=== PATIENT | female | born 1955 ===

== ENCOUNTER → 2017-07-13 | Outpatient (CLI) | payer OTHER ==
[2017-07-13 13:18] LABS: HEMATOCRIT 42.7 % (36.0-47.0); HEMOGLOBIN 14.2 g/dL (12.0-15.5); MEAN CORPUSCULAR HEMOGLOBIN 31.3 pg (27.0-33.4); MEAN CORPUSCULAR HGB CONC 33.3 g/dL (32.0-36.0); MEAN CORPUSCULAR VOLUME 94 fl (80-97); PLATELET COUNT 254 10^3/uL (150-450); RED BLOOD COUNT 4.54 10^6/uL (3.72-5.28); RED CELL DISTRIBUTION WIDTH 13.3 % (11.5-14.0); WHITE BLOOD COUNT 5.3 10^3/uL (4.0-10.5)
[2017-07-13 13:20] LABS: ALANINE AMINOTRANSFERASE 97 U/L (9-52); ALBUMIN 4.5 g/dL (3.5-5.0); ALKALINE PHOSPHATASE 75 U/L (38-126); AMYLASE 59 U/L (30-110); ANION GAP 11 (5-19); ASPARTATE AMINO TRANSFERASE 60 U/L (14-36); BILIRUBIN,DIRECT 0.1 mg/dL (0.0-0.4); BILIRUBIN,TOTAL 0.5 mg/dL (0.2-1.3); BLOOD UREA NITROGEN 9 mg/dL (7-20); CARBON DIOXIDE 27 mmol/L (22-30); CHLORIDE 108 mmol/L (98-107); CHOLESTEROL 209.63 mg/dL (0-200); GAMMA-GLUTAMYL TRANSFERASE 27 U/L (8-78); GLUCOSE 92 mg/dL (75-110); IRON(TIBC) 141.8 ug/dL (37-170); LDH 468 U/L (313-618); PHOSPHORUS 3.3 mg/dL (2.5-4.5); POTASSIUM 5.1 mmol/L (3.6-5.0); SODIUM 146.1 mmol/L (137-145); TOTAL PROTEIN 7.3 g/dL (6.3-8.2); TRIGLYCERIDES 135 mg/dL (<150)
[2017-07-13 13:33] LABS: DIRECT LDL 153 mg/dL (<100)
[2017-07-13 13:36] LABS: FREE T3 3.51 pg/mL (2.77-5.27)
[2017-07-13 13:43] LABS: ABSOLUTE LYMPHOCYTES# (MANUAL) 1.6 10^3/uL (0.5-4.7); ABSOLUTE MONOCYTES # (MANUAL) 0.3 10^3/uL (0.1-1.4); ABSOLUTE NEUTROPHILS# (MANUAL) 3.2 10^3/uL (1.7-8.2); BASOPHILS % (MANUAL) 0 % (0-2); EOSINOPHILS % (MANUAL) 2 % (0-6); LYMPHOCYTES % (MANUAL) 28 % (13-45); MONOCYTES % (MANUAL) 6 % (3-13); SEGMENTED NEUTROPHILS % (MAN) 61 % (42-78); TOTAL CELLS COUNTED 100
[2017-07-13 13:44] LABS: FREE T4 (FREE THYROXINE) 0.97 ng/dL (0.78-2.19); RBC MORPHOLOGY COMMENT NORMO-CYTIC/CHROMIC
[2017-07-13 13:45] LABS: PLATELET COMMENT ADEQUATE
[2017-07-13 14:59] LABS: FOLATE > 20.00 ng/mL (>2.76)
[2017-07-14 06:39] LABS: FREE THYROXINE INDEX 1.7 (1.2-4.9); INSULIN-LIKE GROWTH FACTOR I 45 ng/mL (46-172); T3 UPTAKE (RESIN) 22 % (24-39); THYROXINE (T4) 7.6 ug/dL (4.5-12.0); TRIIODOTHYRONINE (T3) 132 ng/dL (71-180)
[2017-07-14 07:20] LABS: FRUCTOSAMINE 217 umol/L (0-285); THYROGLOBULIN AB <1.0 IU/mL (0.0-0.9); THYROID PEROXIDASE (TPO) AB 13 IU/mL (0-34)
[2017-07-14 07:43] LABS: DEHYDROEPIANDROSTERONE SULFATE 99.8 ug/dL (29.4-220.5); PROLACTIN 7.1 ng/mL (4.8-23.3)
[2017-07-14 07:58] LABS: ESTRADIOL 16.9 pg/mL (.); FOLLICLE STIMULATING HORMONE 56.1 mIU/mL (.); LUTEINIZING HORMONE 26.7 mIU/mL (.); PROGESTERONE <0.1 ng/mL (.); SEX HORM BINDING GLOBULIN 62.9 nmol/L (17.3-125.0)
[2017-07-14 14:40] LABS: ANTIMYELOPEROXIDASE (MPO) AB <9.0 U/mL (0.0-9.0); B-TYPE NATRIURETIC PEPTIDE 8.7 pg/mL (0.0-100.0); C-PEPTIDE 3.9 ng/mL (1.1-4.4); INSULIN 21.5 uIU/mL (2.6-24.9)
[2017-07-14 14:42] LABS: HOMOCYST(E)INE PLASMA 10.6 umol/L (0.0-15.0)
[2017-07-14 16:17] LABS: TESTOSTERONE FREE (DIRECT) 3.4 pg/mL (0.0-4.2)
[2017-07-16 06:01] LABS: REVERSE T3 18.4 ng/dL (9.2-24.1)
== END ==
LOC: MMP 12:53
PROVIDERS: ATTEND Family Medicine
DX: Z13.228 Encounter for screening for other metabolic disorders (principal); Z13.21 Encounter for screening for nutritional disorder; R53.83 Other fatigue; E34.9 Endocrine disorder, unspecified
CPT/HCPCS: 36415; 80053; 80061; 82150; 82306; 82533; 82607; 82627; 82670; 82728; 82746; 82977; 82985; 83001; 83002; 83036; 83090; 83520; 83525; 83540; 83550; 83615; 83735; 83880; 83970; 84100; 84144; 84146; 84270; 84305; 84378; 84402; 84403; 84436; 84439; 84443; 84479; 84480; 84481; 84482; 84681; 85025; 86141; 86376; 86800